=== PATIENT | male | born 1940 | race Hispanic/Latino ===

== ENCOUNTER 2023-11-11 06:45 | Day surgery (SDC) | payer MEDICARE ==
[2023-11-05 11:54] LABS: BASOPHILS # (AUTO) 0.05 K/uL (0.00-0.20); BASOPHILS % (AUTO) 0.7 % (0.0-5.0); EOSINOPHILS % (AUTO) 2.7 % (0.0-8.0); HEMATOCRIT 35.7 % (42-54); IMMATURE GRANULOCYTE ABSOLUTE 0.02 K/uL (0-1); LYMPHOCYTES # (AUTO) 2.1 K/uL (1.0-4.8); LYMPHOCYTES % (AUTO) 27.7 % (21.0-51.0); MEAN CORPUSCULAR HEMOGLOBIN 27.6 pg (27.0-33.0); MEAN CORPUSCULAR HGB CONC 31.9 g/dL (32.0-36.0); MEAN CORPUSCULAR VOLUME 86.4 fL (79-99); MONOCYTES # (AUTO) 0.7 K/uL (0.1-1.0); MONOCYTES % (AUTO) 8.7 % (3.0-13.0); NEUTROPHILS # (AUTO) 4.5 K/uL (1.8-7.7); NEUTROPHILS % (AUTO) 59.9 % (40.0-77.0); PLATELET COUNT (AUTO) 226 K/uL (130-400); RED BLOOD CELL COUNT(AUTO) 4.13 MIL/uL (4.50-6.20); RED CELL DISTRIBUTION WIDTH 13.2 % (11.0-15.5); WHITE BLOOD COUNT (AUTO) 7.5 K/uL (4.8-10.8)
[2023-11-05 12:05] VITALS: BP 154/65; PULSE 52; RESP 18; TEMP 98.5
[2023-11-05 12:12] LABS: CREATININE 1.4 mg/dL (0.5-1.3); POTASSIUM 5.1 mmol/L (3.5-5.1)
[2023-11-05 12:21] LABS: ADD UA MICROSCOPIC YES; APPEARANCE,URINE CLOUDY (CLEAR); BILIRUBIN,URINE NEGATIVE (NEGATIVE); COLOR,URINE LIGHT-YELLOW (YELLOW); GLUCOSE, URINE (UA) NEGATIVE (NEGATIVE); KETONES,URINE NEGATIVE (NEGATIVE); LEUKOCYTE ESTERASE ,URINE 500 Leu/uL (NEGATIVE); NITRATE,URINE NEGATIVE (NEGATIVE); PH,URINE 6.5 (5.0-8.0); PROTEIN,URINE NEGATIVE (NEGATIVE); UROBILINOGEN,URINE 0.2 mg/dL (0.2-1.0)
[2023-11-05 12:33] LABS: INR 0.96 (0.85-1.15); PROTHROMBIN TIME 10.4 SEC (9.6-11.6)
[2023-11-05 12:34] LABS: PARTIAL THROMBOPLASTIN TIME 23.1 SEC (26.3-35.5)
[2023-11-05 12:50] LABS: WBC,URINE 26-50 /HPF (0-1)
[2023-11-05 12:51] LABS: BACTERIA,URINE Few /HPF (None Seen)
[~2023-11-11] VITALS: Ht 182.9 cm; Wt 97.8 kg
[2023-11-11] VITALS (19 sets, daily range): BP systolic 94–158; BP diastolic 50–75; PULSE 54–80; RESP 12–20; TEMP 97.1–98.4
[~2023-11-11 06:45] MED LIST: ASPI-1443 PO; FINA5TAB41 PO; LISI10TA24 PO; METF-444 PO; SIMV-46 PO; TOPI25TA48 PO
[2023-11-11] MEDS: 0.9%NACL 1000ML 1,000 ML IV ONE (07:47)
[2023-11-11] MEDS ORDERED: FENTanyl CITRate PF 50 MCG/1 ML 2ML VIAL ONE (07:57)
[2023-11-11] MEDS ORDERED: rocuRONium bROMide 10MG/1ML 5ML VL ONE (07:57)
[2023-11-11] MEDS ORDERED: LIDOCAINE HCL MPF 1% 5ML VIAL ONE (07:57)
[2023-11-11] MEDS ORDERED: proPOFol 10 MG/ML 20ML VIAL IV ONE (07:57)
[2023-11-11] MEDS ORDERED: ONDANSETRON 4MG INJ ONE (07:57)
[2023-11-11] MEDS: levoFLOXacin 500 MG/D5W 100 ML 100 ML ONE (08:52)
[2023-11-11] MEDS ORDERED: ATROPINE 1MG SYG IVP ONE (09:44)
[2023-11-11] MEDS ORDERED: MEPERIDINE-PF 25 MG/ML SYG ONE (09:44)
[2023-11-11] MEDS ORDERED: ePHEDrine SULFate 50 MG/ML AMPULE ONE (09:58)
[2023-11-11] MEDS ORDERED: GLYCOPYRROLATE 0.2 MG/ML 5 ML VIAL ONE ×2 (10:28→10:58)
[2023-11-11] MEDS ORDERED: NEOSTIGMINE METHYLSULFATE 1MG/ML IV ONE (10:29)
[2023-11-11] MEDS: BACITRACIN 1 EACH PACKET TP ONE (14:09)
== END 2023-11-11 12:55 | disposition home or self-care (01) ==
LOC: DAH 06:45
PROVIDERS: ATTEND Urology
DX: N40.1 Benign prostatic hyperplasia with lower urinary tract symptoms (principal); L91.8 Other hypertrophic disorders of the skin; I10 Essential (primary) hypertension; E11.9 Type 2 diabetes mellitus without complications; Z79.01 Long term (current) use of anticoagulants; Z88.0 Allergy status to penicillin; Z88.1 Allergy status to other antibiotic agents; Z79.899 Other long term (current) drug therapy
CPT/HCPCS: 80048; 85025; 85610; 85730; 87086 ×2; 87186; 81001; 36415; 71045; 93005; 52648; 11200; 82948 ×3; 88304; A6260; A4663; A6207; J7030 ×2; A4354; C1758; J3010; J1956; J3490 ×5; J0461; J2704; J2405; J2710; J2175; A4315; A4358; A4649; C1769; A4930; A4215; A4223; A4222; A4221; A4600